=== PATIENT | male | born 1995 ===

== ENCOUNTER 2018-01-01 13:51 | Day surgery (SDC) | payer BC ==
[2018-01-01 08:15] VITALS: BMI 19.5
[2018-01-01 15:43] VITALS: O2SAT 99
[2018-01-01] MEDS ORDERED: Bupivacaine HCl 0.25% PF (30 ml) Inj ONE (17:45)
[2018-01-01] MEDS ORDERED: ceFAZolin 1 gm in NS 1 GM/100 ML BAG IVPB ONE (18:05)
[2018-01-01] MEDS ORDERED: Lidocaine/Epinephrine 1% 1:100000 10 ML IJ ONE (18:20)
[2018-01-01] MEDS ORDERED: Lidocaine Hydrochloride 15 ML INJ ONE (18:20)
[2018-01-01 20:10] VITALS: TEMP 98.6
[2018-01-01 20:11] VITALS: BP 122/64; PULSE 60; RESP 15
--- NOTE | 2018-01-18 13:02 | HP ---
REASON FOR ADMISSION: Treatment of penile skin, skin adhesion. It is a penile adhesion with curvature to the distal tip of the penis and the patient is here for surgical improvement. HISTORY OF PRESENT ILLNESS: This is a very pleasant young gentleman who has the following. He is noted to have an adhesion on his penis that is causing curvature and discomfort. We had discussed various options with the patient and he is here today for basically a frenulectomy. We had discussed various options with the patient including just observation, but he is uncomfortable with the appearance and also when he gets an erection and in an erect state, it is pulling and hurting him and causing discomfort. So after discussing various options with the patient, he is here today for correction. PAST MEDICAL AND SURGICAL HISTORY: Essentially otherwise unremarkable. REVIEW OF SYSTEMS: As listed above, otherwise noncontributory. MEDICATIONS: None. ALLERGIES: NONE. PHYSICAL EXAMINATION GENERAL: He is a well-developed, well-nourished male in no apparent distress. HEENT: Normocephalic, atraumatic. NECK: No cervical or axillary lymphadenopathy. LUNGS: Clear. HEART: Normal S1, S2. ABDOMEN: Overall, soft and nontender. No flank mass appreciated. GENITOURINARY: He has a normal male phallus. What he has is on the ventral surface, he has a curve, he has a pull of a band adhesion around the frenula area. The remainder of the exam is otherwise unremarkable. No testicular masses. Rectal exam is deferred. DIAGNOSIS: A skin adhesion causing curvature to the penis. PLAN: As follows: We discussed the options at length. We are going to plan for a frenulectomy. We will make further plans and follow. Risks and benefits were discussed, typically the risk of scarring, the risk of recurrence. I explained to him the technique that we are going to do it. I also explained him we are going to use nonabsorbable suture material less reactive. I explained to him about the general circumcision. I explained all the various risks, benefits, and treatment alternatives, but we are going to plan to proceed with just a frenulectomy. Michael Coulter MD
--- NOTE | 2018-01-21 10:12 | OP ---
PROCEDURE DATE: 01/01/2018 PREOPERATIVE DIAGNOSES: Skin adhesion, penile curvature, and discomfort and pain with erection. POSTOPERATIVE DIAGNOSES: Skin adhesion, penile curvature and discomfort and pain with erection. PROCEDURE: Frenulectomy and repair of the phallus. COMPLICATIONS: There were no complications. ESTIMATED BLOOD LOSS: Less than 10 mL. COMPLICATIONS: There were no complications. INDICATIONS: Please see history and physical for details. A very pleasant gentleman with discomfort in his penis and pain with erections with pulling and during relations and intimacies and erections and also uncomfortable with appearance. It is grossly abnormal. We have discussed options, the patient is here now for the above procedure. I explained to the patient risks, benefits, and alternatives, risks of scarring, risk of infection, etc. DESCRIPTION OF PROCEDURE: We assessed the patient in usual sterile fashion. We identified our abnormality prior to the patient's local anesthesia. The patient did not want any anesthesia, so he stayed awake during the entire process. I discussed with him the various options. We gave him both lidocaine and Marcaine for local anesthetic affect. We had good control of the anesthesia. We used the marking pen to highlight our area. We made a transverse incision to cut open the scar tissue. We create it longitudinally. We used 5-0 to 6-0 very delicately and carefully. We have actually used the magnifying lens. At this point, we reassessed, we had good control. We assessed the multiple images of suture material to prevent further scarring. At the termination of the procedure, it looks like a very nice repair. We applied a dry sterile dressing. The patient tolerated the procedure without complication. Michael Coulter MD
== END 2018-01-01 19:50 | disposition home or self-care (01) ==
LOC: C.SDS 13:51
PROVIDERS: ATTEND Urology
DX: N48.89 Other specified disorders of penis (principal); Q55.61 Curvature of penis (lateral)
CPT/HCPCS: 54164; D7960